=== PATIENT | female | born 2000 | race Caucasian/White ===

== ENCOUNTER 2021-02-28 14:46 | Inpatient (IN) | payer OTHER ==
[~2021-02-28] VITALS: Ht 154.9 cm; Wt 61.7 kg
[2021-02-28] MEDS ORDERED: PRENATAL CAPLE1 EAC1 (14:52)
[2021-03-03] MEDS ORDERED: FEOSOL325 MG PO (16:04)
[2021-03-03] MEDS ORDERED: VITAMIN C500 M6 PO (16:04)
== END 2021-03-03 16:18 | disposition home or self-care (01) | DRG 807 ==
LOC: LDR 14:46 → OB/GYN 14:46 → LDR 19:22 → OB/GYN 03-01 14:01
PROVIDERS: ADMIT Obstetrics & Gynecology; ATTEND Obstetrics & Gynecology
PROC: 10E0XZZ Delivery of Products of Conception, External Approach (ICD-10-PCS; principal; 2021-03-01)
PROC: 10907ZC Drainage of Amniotic Fluid, Therapeutic from Products of Conception, Via Natural or Artificial Opening (ICD-10-PCS; 2021-03-01)
PROC: 4A1HXFZ Monitoring of Products of Conception, Cardiac Rhythm, External Approach (ICD-10-PCS; 2021-03-01)
DX: O60.14X0 Preterm labor third trimester with preterm delivery third trimester, not applicable or unspecified (principal); Z37.0 Single live birth; O99.013 Anemia complicating pregnancy, third trimester; D64.9 Anemia, unspecified; Z3A.35 35 weeks gestation of pregnancy; Z20.822 Contact with and (suspected) exposure to COVID-19